=== PATIENT | female | born 1950 | race Hispanic/Latino ===

== ENCOUNTER 2021-08-29 16:02 | Emergency (ER) | payer MEDICARE ==
[~2021-08-29] VITALS: Ht 154.9 cm; Wt 83.9 kg
[2021-08-29] MEDS ORDERED: CELEBREX200 MG PO (16:26)
[2021-08-29] MEDS ORDERED: LOSARTAN POTASS25 MG PO (16:26)
[2021-08-29] MEDS ORDERED: [UNRECOGNIZED DRUG - OTHER] (16:26)
[2021-08-29] MEDS ORDERED: OMEPRAZOLE40 MG PO (16:26)
[2021-08-29] MEDS ORDERED: ACETAMINOPHEN 325 MG TAB PO ONE (16:30)
[2021-08-29] MEDS ORDERED: KETOROLAC TROMETHAMINE 60 MG/2 ML VIAL IM ONE (16:30)
[2021-08-29] MEDS ORDERED: VOLTAREN ARTHRI20 GM EXT (16:42)
[2021-08-29] MEDS ORDERED: ULTRAM 50MG50 MG PO (16:42)
[2021-08-29] MEDS ORDERED: KETOROLAC TROMETHAMINE 30 MG/ML VIAL ONE (16:47)
[2021-08-29] MEDS ORDERED: ACETAMINOPHEN 325 MG TAB ONE (16:47)
== END 2021-08-29 17:35 | disposition home or self-care (01) ==
LOC: FSED 16:08
DX: M25.561 Pain in right knee (principal); M17.11 Unilateral primary osteoarthritis, right knee; I10 Essential (primary) hypertension; K21.9 Gastro-esophageal reflux disease without esophagitis; Z96.652 Presence of left artificial knee joint
CPT/HCPCS: 73562; 96372; 99283; J1885